=== PATIENT | female | born 1950 | race Caucasian/White ===

== ENCOUNTER 2019-01-28 12:53 | Emergency (ER) | payer OTHER, MEDICARE ==
[~2019-01-28] VITALS: Ht 160 cm; Wt 71.2 kg
[2019-01-28 12:58] VITALS: BP 151/70
--- NOTE | 2019-01-29 07:46 | EKG ---
[place] [address] [facility] [place] [address] ELECTROCARDIOGRAM REPORT Name: MARSHAL HOWELL Room #: DEP ALFRED [place]#: [id number] ������������������ Admission: 01/28/19 ������������������ Attend Phys: Discharge: 01/28/19 ������������������ Date of : 48 Report #: [id number] ����������������������������������������������������������������� [id number] THIS REPORT FOR: //name// [facility]ly [facility] ED Test Date: 2019-01-28 Test Time: 13:07:05 Pat Name: MARSHAL HOWELL Department: Room: Gender: F [employer]: [facility] : 1950 Requested By: Candis Keen Order Number: [id number] MD: Tony Farmer Measurements Intervals [place] Rate: 68 P: 61 CO: 175 QRS: 18 QRSD: 82 T: 32 QT: 386 QTc: 411 Interpretive Statements Sinus rhythm Normal tracing No previous ECG available for comparison Electronically Signed On 01-29-2019 7:45:49 [employer] by Tony Farmer [email or web address] ��������������������������������������������� <ELECTRONICALLY SIGNED> ���������������������������������������� By: Tony Farmer MD, [facility] ��������������������������������������������� 01/29/19 0745 1307 1307 Tony Farmer MD, FACC /EPI
== END 2019-01-28 14:09 | disposition home or self-care (01) ==
LOC: ER 12:53
DX: Z53.21 Procedure and treatment not carried out due to patient leaving prior to being seen by health care provider (principal)